=== PATIENT | female | born 1990 | race Caucasian/White ===

== ENCOUNTER 2022-04-05 10:23 | Outpatient (CLI) | payer BC ==
[~2022-04-05 10:23] MED LIST: Iopamidol 370 76% 100 ML VIAL ONE
== END 2022-04-05 10:24 | disposition home or self-care (01) ==
LOC: CSHCT 10:23
PROVIDERS: ATTEND Obstetrics & Gynecology Gynecology
DX: D25.9 Leiomyoma of uterus, unspecified (principal); R19.00 Intra-abdominal and pelvic swelling, mass and lump, unspecified site; R18.8 Other ascites; J90 Pleural effusion, not elsewhere classified
CPT/HCPCS: 74178; Q9967